=== PATIENT | female | born 1960 | race Caucasian/White ===

== ENCOUNTER 2019-12-24 00:21 | Emergency (ER) | payer MEDICARE ==
[2019-12-24] MEDS ORDERED: MORPHINE SULFATE 4 MG/ML SYRINGE IV STA (00:37)
[2019-12-24] MEDS ORDERED: LORazepam 2 MG/ML INJ IV STA (00:37)
[2019-12-24] MEDS ORDERED: SODIUM CHLORIDE 0.9% 1,000 ML IV STA ×2 (00:37→03:27)
[2019-12-24] MEDS ORDERED: IPRATROPIUM-ALBUTEROL 3 ML NEB INHALATION STA (00:38)
--- NOTE | 2019-12-24 00:55 | ED ---
Chest Pain HPI - General Stated Complaint: Flank Pain/GRETCHEN Time Seen by Provider: 12/24/19 00:24 Source: RN notes reviewed, old records reviewed Mode of arrival: EMS Limitations: no limitations, physical limitation (Patient is in severe distress secondary to pain) - History of Present Illness MD Complaint: chest pain, other (Left flank pain left-sided pain left-sided back pain) -: hour(s) Onset: during rest Pain Location: left chest Pain Radiation: abdomen Severity: severe Severity scale (1-10): 10 Quality: tightness, sharp, ripping Consistency: constant Improves With: nothing Worsens With: nothing Context: other (History of significant back pain and muscle spasm) Anginal Symptoms: diaphoresis, dyspnea Treatments Prior to Arrival: none - Related Data Allergies Allergy/AdvReac Type Severity Reaction Status Date / Time No Known Allergies Allergy Verified 12/24/19 02:17 Review of Systems ROS Statement: Those systems with pertinent positive or pertinent negative responses have been documented in the HPI. ROS Other: All systems not noted in ROS Statement are negative. EKG Findings - EKG Comments: EKG Findings:: EKG shows junctional rhythm of 109, QRS 80, QTC 476 General Exam General appearance: alert, in no apparent distress, anxious, in distress (secondary to pain) Head exam: Present: atraumatic, normocephalic, normal inspection Eye exam: Present: normal appearance, PERRL, EOMI. Absent: scleral icterus, conjunctival injection, periorbital swelling ENT exam: Present: normal exam, mucous membranes moist Neck exam: Present: normal inspection. Absent: tenderness, meningismus, lymphadenopathy Respiratory exam: Present: normal lung sounds bilaterally. Absent: respiratory distress, wheezes, rales, rhonchi, stridor Cardiovascular Exam: Present: normal rhythm, tachycardia, normal heart sounds. Absent: systolic murmur, diastolic murmur, rubs, gallop, clicks GI/Abdominal exam: Present: soft, normal bowel sounds. Absent: distended, tenderness, guarding, rebound, rigid Extremities exam: Present: normal inspection, full ROM, normal capillary refill. Absent: tenderness, pedal edema, joint swelling, calf tenderness Back exam: Present: normal inspection Neurological exam: Present: alert, oriented X3, CN II-XII intact Psychiatric exam: Present: normal affect, normal mood Skin exam: Present: warm, dry, intact, normal color. Absent: rash Course Vital Signs 12/24/19 12/24/19 12/24/19 00:37 01:03 01:08 Temperature 97.9 F Pulse Rate 104 H 108 H Respiratory 22 Rate Blood Pressure 152/101 O2 Sat by Pulse 98 100 Oximetry 12/24/19 12/24/19 12/24/19 01:14 01:15 01:30 Temperature Pulse Rate 101 H 108 H 113 H Respiratory 12 20 Rate Blood Pressure 136/100 131/88 O2 Sat by Pulse 99 97 Oximetry 12/24/19 12/24/19 12/24/19 01:45 02:00 02:15 Temperature Pulse Rate 117 H 108 H Respiratory 24 6 L Rate Blood Pressure 118/66 129/78 138/80 O2 Sat by Pulse 95 93 L Oximetry 12/24/19 12/24/19 12/24/19 02:30 02:45 03:00 Temperature Pulse Rate 122 H 118 H Respiratory 28 H 11 L Rate Blood Pressure 115/86 133/87 O2 Sat by Pulse 97 93 L Oximetry 12/24/19 12/24/19 12/24/19 03:15 03:30 03:45 Temperature Pulse Rate 128 H 117 H 116 H Respiratory 9 L 16 16 Rate Blood Pressure 107/80 129/116 126/84 O2 Sat by Pulse 95 93 L 97 Oximetry 12/24/19 04:00 Temperature Pulse Rate 129 H Respiratory 20 Rate Blood Pressure 133/64 O2 Sat by Pulse Oximetry Disposition Clinical Impression: Muscle spasm, Back pain Disposition: HOME SELF-CARE Condition: Good Instructions (If sedation given, give patient instructions): Acute Low Back Pain (ED), Chronic Back Pain (DC) Is patient prescribed a controlled substance at d/c from ED?: No Referrals: None,Stated [Primary Care Provider] - 1-2 days
--- NOTE | 2019-12-24 00:57 | XR ---
EXAMINATION TYPE: XR chest 1V portable DATE OF EXAM: 12/24/2019 COMPARISON: NONE HISTORY: Short of breath TECHNIQUE: Single view FINDINGS: There is slight increased interstitial density left lower lobe. The other lung francisco are c lear. Heart and mediastinum are normal. There are no hilar masses. There is no pleural effusion. Bony thorax is intact. IMPRESSION: Slight increased markings left lower lobe. Otherwise negative exam. Normal heart.
[2019-12-24 01:10] LABS: Basophils # (A) 0.1 k/uL (0-0.2); Basophils % (A) 1 %; Eosinophils # (A) 0.2 k/uL (0-0.7); Eosinophils % (A) 1 %; HCT 38.7 % (34.0-46.0); HGB 12.1 gm/dL (11.4-16.0); Lymphocytes # (A) 2.7 k/uL (1.0-4.8); Lymphocytes % (A) 22 %; MCH 27.2 pg (25.0-35.0); MCHC 31.3 g/dL (31.0-37.0); MCV 86.8 fL (80.0-100.0); Mean Platelet Volume 6.7; Monocytes # (A) 0.4 k/uL (0-1.0); Monocytes % (A) 3 %; Neutrophils # (A) 8.8 k/uL (1.3-7.7); Neutrophils % (A) 71 %; Platelet Count 420 k/uL (150-450); RBC 4.46 m/uL (3.80-5.40); RDW 14.5 % (11.5-15.5); WBC 12.4 k/uL (3.8-10.6)
[2019-12-24 01:20] VITALS: TEMP 97.9
[2019-12-24 01:20] LABS: Albumin 4.5 g/dL (3.5-5.0); Magnesium 1.7 mg/dL (1.6-2.3); Phosphorus 3.4 mg/dL (2.5-4.5); Potassium 4.4 mmol/L (3.5-5.1); Total Bilirubin 0.2 mg/dL (0.2-1.3); Total Protein 7.8 g/dL (6.3-8.2)
[2019-12-24 01:24] LABS: INR 0.9 (<1.2); Partial Thromboplastin Time 23.1 sec (22.0-30.0); Prothrombin Time 9.5 sec (9.0-12.0)
--- NOTE | 2019-12-24 01:26 | CT ---
EXAMINATION TYPE: CT angio chest DATE OF EXAM: 12/24/2019 COMPARISON: None HISTORY: left sided chest pain CT DLP: 354.6 mGycm Automated exposure control for dose reduction was used. CONTRAST: Performed with IV Contrast, patient injected with 100mL mL of Isovue 370. There are 3-D post processed images. The lungs are clear of consolidation. There is no pleural effusion or pneumothorax. There is some mil d reticular density at the lung apices consistent with scarring. There is no mediastinal adenopathy. There are no hilar masses. Heart size is normal. There is no pericardial effusion. Thoracic aorta is intact. There is no aneurysm or dissection. There is normal contrast opacification of the pulmonary arteries. There are no filling defects. The bony thorax is intact. There is neural s timulator in the mid thoracic spine. IMPRESSION: No evidence of pulmonary embolism. Mild pulmonary scarring at the lung apices.
[2019-12-24 01:38] LABS: D-Dimer 1.05 mg/L FEU (<0.60)
[2019-12-24] MEDS ORDERED: methylPREDNISolone SOD SUCCI 125 MG/2 ML VIAL IV STA (01:56)
[2019-12-24] MEDS ORDERED: KETOROLAC 30 MG/ML 1 ML VIAL IVP STA (01:56)
[2019-12-24] MEDS ORDERED: HYDROmorphone 1 MG/ML 1 ML SYRINGE IVP PRN (02:09)
[2019-12-24] MEDS ORDERED: HYDROmorphone 1 MG/ML 1 ML SYRINGE IVP STA ×2 (02:09→03:26)
[2019-12-24 02:54] LABS: Appearance,Urine Clear (Clear); Bilirubin,Urine Negative (Negative); Blood,Urine Trace (Negative); Color,Urine Yellow; Glucose,Urine (UA) Negative (Negative); Ketones,Urine Negative (Negative); Leukocyte Esterase,Urine Negative (Negative); Mucus,Urine Rare /hpf; Nitrite,Urine Negative (Negative); Protein,Urine Negative (Negative); RBC,Urine 4 /hpf (0-5); Specific Gravity,Urine 1.045 (1.001-1.035); Squamous Epithelial Cell,Urine 10 /hpf (0-4); Urobilinogen,Urine <2.0 mg/dL (<2.0); WBC,Urine <1 /hpf (0-5)
--- NOTE | 2019-12-24 03:02 | CT ---
EXAMINATION TYPE: CT abdomen pelvis wo con DATE OF EXAM: 12/24/2019 COMPARISON: None HISTORY: left side pain CT DLP: 665 mGycm Automated exposure control for dose reduction was used. Multiple axial sections were obtained from the diaphragm to the floor the pelvis with no additional I V contrast. There is pre-existing IV contrast from the chest CT scan. Lung bases are clear. There is no pleural effusion. Heart size is normal. Liver spleen stomach pancreas gallbladder appear normal. Bile ducts are not dilated. There is no adre nal mass. The kidneys show satisfactory contrast opacification. There is no hydronephrosis. Ureters a re not dilated. Bladder distends smoothly with contrast. There is right hip prosthesis. There is no i nguinal hernia. There is no free fluid in the pelvis. There is no mesenteric edema. There is no ascites or free air. There is hysterectomy. There is no evidence of a bowel obstruction. Appendix is not seen. There is no sign of thickened appendix. Cecum is low in the pelvis. There is laminectomy in the lower lumbar spine. There is no lumbar compression fracture. There is dis c prosthesis at L5-S1. The bony pelvis appears intact. IMPRESSION: No sign of acute abdomen and pelvis. I do not see a cause for left-sided pain.
[2019-12-24] MEDS ORDERED: DIAZEPAM 5 MG/ML 2 ML INJ IVP STA (03:26)
[2019-12-24] MEDS ORDERED: LIDOCAINE 5% PATCH TOPICAL STA (03:26)
[2019-12-24 04:15] VITALS: BP 133/64; PULSE 129; RESP 20
== END 2019-12-24 04:33 | disposition home or self-care (01) ==
LOC: EC 00:21
DX: M62.838 Other muscle spasm (principal); M54.9 Dorsalgia, unspecified
CPT/HCPCS: 96374; 96375 ×5; 96376; 96361; 36415; 94640; 93005; 85379; 83880; 80053; 83690; 83735; 84100; 84484; 85025; 85610; 85730; 81001; 87635; 71045; 71275; 74176; 99285; J2060; J2270; J2930; J3360; J1885; J1170; Q9967

== ENCOUNTER → 2020-04-11 | Outpatient (CLI) | payer MEDICARE ==
--- NOTE | 2020-04-11 08:41 | CT ---
EXAMINATION TYPE: CT knee RT wo con DATE OF EXAM: 04/11/2020 COMPARISON: None. HISTORY: Right knee pain, primary osteoarthritis, lesions of distal femur and proximal tibia all per order. Pain after tripping injury one year ago per patient. CT DLP: 369.80 mGycm Automated exposure control for dose reduction was used. FINDINGS: There is confirmation of intramedullary lesion involving the distal femoral metaphysis extending to j oint space and proximal tibial metaphysis extending to joint space. There is serpiginous sclerotic ap pearance. I suspect bone infarction or osteonecrosis. In addition there is associated insufficiency f racture of the lateral femoral condyle with roughly 18 x 4 mm sclerotic fracture fragment noted on co concetta image 29. No significant step-off or depression is present. Some cortical irregularity along th e joint space is seen best on sagittal images. There is meniscal calcification identified. There is additional some calcification involving the post erior cruciate ligament and tendon of lateral collateral ligament complex near its distal insertion o f the fibular head. 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 There is however not e made of no significant suprapatellar joint effusion. Extensor tendon is intact. No popliteal cyst is identified. Muscle bulk is preserved. Fibular head is felt within normal limits. IMPRESSION: As above. Suspect bone infarction or osteonecrosis. Correlation for risk factors includin g steroid use is advised.
== END | disposition home or self-care (01) ==
LOC: RADCTMAIN 06:45
PROVIDERS: ATTEND Orthopaedic Surgery
DX: S72.421A Displaced fracture of lateral condyle of right femur, initial encounter for closed fracture (principal); M89.8X6 Other specified disorders of bone, lower leg

== ENCOUNTER 2020-04-27 08:03 | Day surgery (SDC) | payer MEDICARE ==
[2020-04-26 12:19] VITALS: BMI 23.0
[2020-04-27 08:53] VITALS: RESP 20; TEMP 97
[2020-04-27] MEDS ORDERED: LIDOCAINE 1% (10MG/ML) FOR IV START INTRADERMA ONE (08:55)
[2020-04-27] MEDS: LACTATED RINGERS 1,000 ML IV SCH ×2 (08:55→09:25)
[2020-04-27] MEDS ORDERED: fentaNYL (PF) 50 MCG/ML 2 ML AMP IV ONE (09:00)
[2020-04-27] MEDS ORDERED: LIDOCAINE 1% INJ 10MG/ML (20 ML MDV) ONE (09:26)
[2020-04-27] MEDS ORDERED: fentaNYL (PF) 50 MCG/ML 2 ML AMP ONE (09:26)
[2020-04-27] MEDS ORDERED: PROPOFOL 10 MG/ML 20 ML VIAL IV ONE (09:26)
--- NOTE | 2020-04-27 09:56 | P.PCN ---
Date of Procedure: 04/27/20 Description of Procedure: BRIEF HISTORY: Patient is a 59-year-old female who presents for outpatient EGD for esophageal obstruction. Patient reports symptoms of dysphagia. She has required EGD with dilation in the past. She is on omeprazole therapy. PROCEDURE PERFORMED: Esophagogastroduodenoscopy with biopsy and esophageal dilation with a [id number] balloon dilator. PREOPERATIVE DIAGNOSIS: Esophageal obstruction, esophageal dysphagia. ESTIMATED BLOOD LOSS: Minimal. IV sedation per anesthesia. PROCEDURE: After informed consent was obtained, the patient was brought into the endoscopy unit. IV sedation was administered by Anesthesia under continuous monitoring. Initially the Olympus GIF-190 video endoscope was inserted into the mouth. Esophagus intubated without any difficulty. It was gradually advanced into the stomach and duodenum and carefully examined. The bulb and the second part of the duodenum appeared normal, with biopsies taken. The scope at this time was withdrawn to the stomach, adequately insufflated with air, and upon careful examination, mucosa of the antrum, body, cardia and the fundus appeared normal, except some superficial erythema and erosions in the antrum and body suggestive of moderate gastritis with biopsies of the antrum and body taken. The scope was then withdrawn into the esophagus. The GE junction was located at 37 cm from the incisors, with a 2 cm hiatal hernia noted. There is a benign-appearing Schatzki's ring in the distal esophagus serially dilated from 12 mm to 18 mm, no superficial tearing or erythema was noted at the lower settings and so serial dilation was performed until superficial mucosal tearing was noted. The esophagus appeared normal. There were no erosions or ulcerations seen and the patient tolerated the procedure well. IMPRESSION: 1. Moderate gastritis. 2. Benign-appearing Schatzki's ring in the distal esophagus dilated with a [id number] balloon dilator. 3. Biopsies of the duodenum and antrum and body. RECOMMENDATIONS: The findings of this examination were discussed with the patient and her friend. Okay to resume diet. Okay to resume medications. Follow-up in clinic as scheduled. Await pathology from biopsies.
[2020-04-27 10:26] VITALS: BP 146/88; PULSE 102
== END 2020-04-27 11:00 | disposition home or self-care (01) ==
LOC: ORWHC2ENDO 08:03
PROVIDERS: ATTEND Internal Medicine
DX: K22.2 Esophageal obstruction (principal); K29.50 Unspecified chronic gastritis without bleeding; K44.9 Diaphragmatic hernia without obstruction or gangrene; K21.9 Gastro-esophageal reflux disease without esophagitis; F17.200 Nicotine dependence, unspecified, uncomplicated; E78.5 Hyperlipidemia, unspecified; J44.9 Chronic obstructive pulmonary disease, unspecified; E07.9 Disorder of thyroid, unspecified; Z90.710 Acquired absence of both cervix and uterus; Z98.890 Other specified postprocedural states; Z79.890 Hormone replacement therapy; Z79.899 Other long term (current) drug therapy; Z88.0 Allergy status to penicillin; Z88.8 Allergy status to other drugs, medicaments and biological substances
CPT/HCPCS: 88305; 43239; 43249; J2001; J3010; J2704; C1726 ×2

== ENCOUNTER → 2020-06-02 | Outpatient (CLI) | payer MEDICARE ==
--- NOTE | 2020-06-02 18:40 | CT ---
EXAMINATION TYPE: CT lumbar spine wo con DATE OF EXAM: 06/02/2020 6:10 PM COMPARISON: HISTORY: CHO, hx of DDD. CT DLP: 334.6 mGycm Automated exposure control for dose reduction was used. Unenhanced CT of the lumbar spine was performed. Bone and soft tissue window settings are submitted as well as coronal and sagittal reconstructions. There is multilevel degenerative disc disease with severe changes at L5-S1, L2-3 and L3-L4. Postsurgi pedro changes are seen at L5-S1 suggestive of previous laminectomy. L1-L2: Normal disc space height. No disc herniation protrusion or central stenosis. No facet joint arthropathy. No evidence for foraminal encroachment. Mild circumferential disc bulging. L2-L3: Diffuse disc bulging with facet hypertrophy. Ligamentum flavum hypertrophy. Suspect bilateral foraminal encroachment and mild canal stenosis. Severe degenerative disc disease. L3-L4: Vacuum disc and diffuse disc protrusion with hypertrophic change and ligamentum flavum and fac et joints. Bilateral foraminal encroachment and moderate canal stenosis. L4-L5: Broad-based central disc protrusion with facet arthropathy. Suspect bilateral foraminal encroa chment. Disc herniation not excluded. Canal stenosis suspected. L5-S1: Surgical changes with no obvious disc herniation. Neural foramina remain patent. Slight damir listhesis of L5 relative to S1. Atherosclerotic change aorta. Incidental note made of a retroaortic left renal vein. IMPRESSION: 1. Postsurgical change at L5-S1 with slight anterior listhesis. 2. Multilevel severe degenerative disc disease most marked at L2-3 and L3-4. 3. There is disc bulging or protrusion at levels L2-3, L3-4 and L4-5. Suspect canal stenosis L3-4 and L4-L5. MRI recommended. 4. Multilevel foraminal encroachment as discussed above.
--- NOTE | 2020-06-05 12:42 | CT ---
EXAMINATION TYPE: CT brain liliamine wo con DATE OF EXAM: 06/05/2020 COMPARISON: HISTORY: CHO, hx of DDD. CT DLP: 978.2 mGycm Automated exposure control for dose reduction was used. TECHNIQUE: CT scan of the head and cervical spine are performed without contrast. FINDINGS: There is no acute intracranial hemorrhage, mass effect, or midline shift identified. No extra axial fluid collection. The ventricles and sulci are within normal limits in size. Calvarium i s intact. There is minimal fluid within the right mastoid air cells. Left mastoid air cells are clear . Globes are grossly symmetric. Paranasal sinuses are clear. Cervical spine is visualized in its entirety from C1 through upper thoracic levels . There is anterio r fusion plate from C4 through T1 with vertebral body screws within the C4 and T1 vertebral bodies. B thu fusion from C4 through T1 is seen. No evidence of hardware fracture or loosening around the screw s. There is straightening of the cervical lordosis. Grade 1 retrolisthesis of C3 on C4. There is mild canal stenosis at C3-C4. There is central osteophytosis/bony protrusion from C5 through C7 which ind ents the ventral aspect of the thecal sac. There is likely mild canal stenosis at C6. Multilevel face t arthropathy and uncovertebral hypertrophy with varying degrees of neural foramina narrowing, most s evere at C3-C4 on the right and from C5-C6 through C7-T1 bilaterally. No evidence of acute fracture o r dislocation. Prevertebral soft tissue appears within normal limits. The C1-C2 articulation is unre markable. There is paraseptal emphysema of the lung apices. IMPRESSION: 1. No acute intrarenal hemorrhage, midline shift, or mass effect. 2. Minimal fluid within the right mastoid air cells. Correlate for possible mastoiditis. 3. Anterior postsurgical fusion changes from C4 through T1, with no evidence of hardware failure. 4. No high-grade canal stenosis. Mild canal stenosis and neural foramina narrowing as above.
== END | disposition home or self-care (01) ==
LOC: RADCTMAIN 17:47
PROVIDERS: ATTEND Psychiatry & Neurology Neurology
DX: M48.02 Spinal stenosis, cervical region (principal); M48.03 Spinal stenosis, cervicothoracic region; M51.26 Other intervertebral disc displacement, lumbar region; M51.36 Other intervertebral disc degeneration, lumbar region; M43.17 Spondylolisthesis, lumbosacral region; R51.9 Headache, unspecified; Z98.1 Arthrodesis status; Z88.0 Allergy status to penicillin; Z88.2 Allergy status to sulfonamides; Z88.6 Allergy status to analgesic agent
CPT/HCPCS: 70450; 72125; 72131